=== PATIENT | male | born 1975 | race Caucasian/White ===

== ENCOUNTER 2017-10-17 10:57 | Inpatient (IN) | payer OTHER ==
[2017-10-17] MEDS ORDERED: Ondansetron 4 MG/2 ML SDV IVPUSH ONE (11:24)
[2017-10-17] MEDS ORDERED: Ketorolac 30 MG/ML SDV IVPUSH ONE (11:24)
[2017-10-17] MEDS ORDERED: Sodium Chloride 0.9% 10 ML Syringe FLUSH PRN (11:24)
--- NOTE | 2017-10-17 11:26 | EDM.PDOC ---
ED HPI GENERAL MEDICAL PROBLEM - General Chief Complaint: Abdominal Pain Stated Complaint: RT SIDE ABD PAIN/NAUSEA Time Seen by Provider: 10/17/17 11:21 Source of Information: Reports: Patient, Family, RN Notes Reviewed History Limitations: Reports: No Limitations - History of Present Illness INITIAL COMMENTS - FREE TEXT/NARRATIVE: 41-year-old gentleman presents to the emergency department today complaint of right lower quadrant pain, he states the pain started early this morning it is very intense he is nauseated with this pain no shortness of breath no chest pains no other complaints no other GI symptoms no history of abdominal surgeries - Related Data Allergies Allergy/AdvReac Type Severity Reaction Status Date / Time No Known Allergies Allergy Verified 10/17/17 11:15 Home Meds: Home Meds NK [No Known Home Meds] 10/17/17 [History] Past Medical History - Past Health History Medical/Surgical History: Denies Medical/Surgical History Social & Family History - Tobacco Use Smoking Status *Q: Never Smoker ED ROS GENERAL - Review of Systems Review Of Systems: See Below Constitutional: Reports: No Symptoms Respiratory: Reports: No Symptoms Cardiovascular: Reports: No Symptoms GI/Abdominal: Reports: Abdominal Pain, Flatus, Nausea. Denies: Constipation, Diarrhea, Vomiting : Reports: No Symptoms ED EXAM, GI/ABD - Physical Exam Exam: See Below Exam Limited By: No Limitations General Appearance: Alert, Mild Distress Respiratory/Chest: No Respiratory Distress, Lungs Clear, Normal Breath Sounds, No Accessory Muscle Use Cardiovascular: Regular Rate, Rhythm, No Murmur GI/Abdominal Exam: Normal Bowel Sounds, Soft (None), Tender (Tender right lower quadrant, psoas sign, obturator sign, heeltap sign all positive), Other (Obese) . No: Guarding, Rigid, Rebound Course - Vital Signs Last Recorded V/S: Last Vital Signs Temp 97.2 F 10/17/17 11:18 Pulse 83 10/17/17 11:18 Resp 20 10/17/17 11:18 BP 158/96 H 10/17/17 11:18 Pulse Ox 98 10/17/17 11:18 - Orders/Labs/Meds Orders: Active Orders 24 hr Category Date Time Status Peripheral IV Care [RC] . DIRECTED Care 10/17/17 11:24 Active Abdomen Pelvis w Cont [CT] Urgent Exams 10/17/17 11:24 Taken UA W/MICROSCOPIC [URIN] Urgent Lab 10/17/17 13:16 Ordered Iopamidol [Isovue-300 (61%)] Med 10/17/17 12:00 Active 150 ml IV . DIRECTED Lactated Ringers [Ringers, Lactated] 1,000 ml Med 10/17/17 11:30 Active IV ASDIRECTED Sodium Chloride 0.9% [Saline Flush] Med 10/17/17 11:24 Active 10 ml FLUSH ASDIRECTED PRN cefOXitin [Mefoxin] 2 gm Med 10/17/17 13:24 Ordered Sodium Chloride 0.9% [Normal Saline] 50 ml IV ONETIME Peripheral IV Insertion Adult [OM.PC] Urgent Oth 10/17/17 11:24 Ordered Medication Orders Lactated Ringer's (Ringers, Lactated) 1,000 mls @ 999 mls/hr IV ASDIRECTED DAVID Last Admin: 10/17/17 12:18 Dose: 999 mls/hr Cefoxitin Sodium 2 gm/ Sodium (Chloride) 50 mls @ 100 mls/hr IV ONETIME ONE Stop: 10/17/17 13:53 Iopamidol (Isovue-300 (61%)) 150 ml IV . DIRECTED DAVID Stop: 10/17/17 23:00 Last Admin: 10/17/17 12:19 Dose: 150 ml Sodium Chloride (Saline Flush) 10 ml FLUSH ASDIRECTED PRN PRN Reason: Keep Vein Open Last Admin: 10/17/17 11:43 Dose: 10 ml Labs: Laboratory Tests 10/17/17 10/17/17 10/17/17 Range/Units 11:24 11:24 11:24 WBC 13.6 H (4.5-11.0) K/uL RBC 5.77 (4.30-5.90) M/uL Hgb 14.7 (12.0-15.0) g/dL Hct 44.1 (40.0-54.0) % MCV 76 L (80-98) fL MCH 26 L (27-31) pg MCHC 33 (32-36) % Plt Count 303 (150-400) K/uL Neut % (Auto) 80 H (36-66) % Lymph % (Auto) 13 L (24-44) % [place] % (Auto) 6 (2-6) % Eos % (Auto) 1 L (2-4) % Baso % (Auto) 0 (0-1) % Sodium 140 (140-148) mmol/L Potassium 4.3 (3.6-5.2) mmol/L Chloride 105 (100-108) mmol/L Carbon Dioxide 29 (21-32) mmol/L Anion Gap 6.0 (5.0-14.0) mmol/L BUN 14 (7-18) mg/dL Creatinine 1.4 H (0.8-1.3) mg/dL Est Cr Clr Drug Dosing 79.27 mL/min Estimated GFR (MDRD) 56 L (>60) Glucose 116 H (74-106) mg/dL Lactic Acid 2.3 H (0.4-2.0) mmol/L Calcium 8.6 (8.5-10.1) mg/dL Total Bilirubin 0.6 (0.2-1.0) mg/dL AST 20 (15-37) U/L ALT 40 (12-78) U/L Alkaline Phosphatase 72 (46-116) U/L Troponin I < 0.017 (0.000-0.056) ng/mL Total Protein 6.9 (6.4-8.2) g/dL Albumin 3.4 (3.4-5.0) g/dL Globulin 3.5 (2.3-3.5) g/dL Albumin/Globulin Ratio 1.0 L (1.2-2.2) Lipase 80 (73-393) U/L Urine Color Urine Appearance Urine pH (4.5-8.0) Ur Specific [place] (1.008-1.030) Urine Protein (NEGATIVE) mg/dL Urine Glucose (UA) (NEGATIVE) mg/dL Urine Ketones (NEGATIVE) mg/dL Urine Occult Blood (NEGATIVE) Urine Nitrite (NEGAITVE) Urine Bilirubin (NEGATIVE) Urine Urobilinogen (NORMAL) mg/dL Ur Leukocyte Esterase (NEGATIVE) Urine RBC (0-5) Urine WBC (0-5) Ur Epithelial Cells Amorphous Sediment Urine Bacteria Urine Mucus 10/17/17 Range/Units 13:16 WBC (4.5-11.0) K/uL RBC (4.30-5.90) M/uL Hgb (12.0-15.0) g/dL Hct (40.0-54.0) % MCV (80-98) fL MCH (27-31) pg MCHC (32-36) % Plt Count (150-400) K/uL Neut % (Auto) (36-66) % Lymph % (Auto) (24-44) % [place] % (Auto) (2-6) % Eos % (Auto) (2-4) % Baso % (Auto) (0-1) % Sodium (140-148) mmol/L Potassium (3.6-5.2) mmol/L Chloride (100-108) mmol/L Carbon Dioxide (21-32) mmol/L Anion Gap (5.0-14.0) mmol/L BUN (7-18) mg/dL Creatinine (0.8-1.3) mg/dL Est Cr Clr Drug Dosing mL/min Estimated GFR (MDRD) (>60) Glucose (74-106) mg/dL Lactic Acid (0.4-2.0) mmol/L Calcium (8.5-10.1) mg/dL Total Bilirubin (0.2-1.0) mg/dL AST (15-37) U/L ALT (12-78) U/L Alkaline Phosphatase (46-116) U/L Troponin I (0.000-0.056) ng/mL Total Protein (6.4-8.2) g/dL Albumin (3.4-5.0) g/dL Globulin (2.3-3.5) g/dL Albumin/Globulin Ratio (1.2-2.2) Lipase (73-393) U/L Urine Color Yellow Urine Appearance Clear Urine pH 5.0 (4.5-8.0) Ur Specific [place] 1.000 L (1.008-1.030) Urine Protein Negative (NEGATIVE) mg/dL Urine Glucose (UA) Normal (NEGATIVE) mg/dL Urine Ketones Negative (NEGATIVE) mg/dL Urine Occult Blood Negative (NEGATIVE) Urine Nitrite Negative (NEGAITVE) Urine Bilirubin Negative (NEGATIVE) Urine Urobilinogen Normal (NORMAL) mg/dL Ur Leukocyte Esterase Negative (NEGATIVE) Urine RBC Not seen (0-5) Urine WBC Not seen (0-5) Ur Epithelial Cells Not seen Amorphous Sediment Rare Urine Bacteria Not seen Urine Mucus Rare Meds: Medications Generic Name Dose Route Start Last Admin Trade Name Freq PRN Reason Stop Dose Admin Lactated Ringer's 1,000 mls @ 999 mls/hr 10/17/17 11:30 10/17/17 12:18 Ringers, Lactated IV 999 mls/hr ASDIRECTED DAVID Administration Cefoxitin Sodium 2 gm/ Sodium 50 mls @ 100 mls/hr 10/17/17 13:24 Chloride IV 10/17/17 13:53 ONETIME ONE Iopamidol 150 ml 10/17/17 12:00 10/17/17 12:19 Isovue-300 (61%) IV 10/17/17 23:00 150 ml . DIRECTED DAVID Administration Sodium Chloride 10 ml 10/17/17 11:24 10/17/17 11:43 Saline Flush FLUSH 10 ml ASDIRECTED PRN Administration Keep Vein Open Discontinued Medications Generic Name Dose Route Start Last Admin Trade Name Freq PRN Reason Stop Dose Admin Fentanyl 50 mcg 10/17/17 12:30 10/17/17 12:38 Sublimaze IVPUSH 10/17/17 12:31 50 mcg ONETIME ONE Administration Sodium Chloride 100 mls @ 3.5 mls/sec 10/17/17 11:56 10/17/17 12:19 Normal Saline IV 10/17/17 11:57 3.5 mls/sec ONETIME ONE Administration Ketorolac Tromethamine 30 mg 10/17/17 11:24 10/17/17 11:42 Toradol IVPUSH 10/17/17 11:25 30 mg ONETIME ONE Administration Ondansetron HCl 4 mg 10/17/17 11:24 10/17/17 11:42 Zofran IVPUSH 10/17/17 11:25 4 mg ONETIME ONE Administration Sodium Chloride 10 ml 10/17/17 11:56 10/17/17 12:19 Saline Flush FLUSH 10/17/17 11:57 10 ml ONETIME ONE Administration Departure - Departure Time of Disposition: 13:31 Disposition: Admitted As Inpatient 67 Condition: Good Clinical Impression: Appendicitis Qualifiers: Appendicitis type: acute appendicitis Acute appendicitis type: with localized peritonitis Qualified Code(s): K35.3 - Acute appendicitis with localized peritonitis - Discharge Information Referrals: PCP,None [Primary Care Provider] - Forms: ED Department Discharge - My Orders Last 24 Hours: My Active Orders 10/17/17 11:24 Peripheral IV Care [RC] . DIRECTED Abdomen Pelvis w Cont [CT] Urgent Sodium Chloride 0.9% [Saline Flush] 10 ml FLUSH ASDIRECTED PRN Peripheral IV Insertion Adult [OM.PC] Urgent 10/17/17 11:30 Lactated Ringers [Ringers, Lactated] 1,000 ml IV ASDIRECTED 10/17/17 12:00 Iopamidol [Isovue-300 (61%)] 150 ml IV . DIRECTED 10/17/17 13:16 UA W/MICROSCOPIC [URIN] Urgent 10/17/17 13:24 cefOXitin [Mefoxin] 2 gm Sodium Chloride 0.9% [Normal Saline] 50 ml IV ONETIME - Assessment/Plan Last 24 Hours: My Active Orders 10/17/17 11:24 Peripheral IV Care [RC] . DIRECTED Abdomen Pelvis w Cont [CT] Urgent Sodium Chloride 0.9% [Saline Flush] 10 ml FLUSH ASDIRECTED PRN Peripheral IV Insertion Adult [OM.PC] Urgent 10/17/17 11:30 Lactated Ringers [Ringers, Lactated] 1,000 ml IV ASDIRECTED 10/17/17 12:00 Iopamidol [Isovue-300 (61%)] 150 ml IV . DIRECTED 10/17/17 13:16 UA W/MICROSCOPIC [URIN] Urgent 10/17/17 13:24 cefOXitin [Mefoxin] 2 gm Sodium Chloride 0.9% [Normal Saline] 50 ml IV ONETIME Plan: Assessment Acuity = acute Site and laterality = acute appendicitis Etiology = unknown Manifestations = abdominal pain, nausea Location of injury = Home Lab values = WBC elevated at 13.6 consistent leukocytosis, creatinine elevated at 1.4 consistent acute renal failure stage GIII a lactic acid elevated 2.3 consistent with lactic acidosis, CT scan describes the appendicitis above, troponin was negative Plan Called discussed case Dr. Alvarez he kindly agreed to come and evaluate the patient emergency department, patient was given 2 g Mefoxin in the ED as well as 1 L of lactated Ringer's, 4 mg Zofran and 1 mg Dilaudid with 30 mg Toradol This note was dictated using [employer] voice recognition software please call with any questions on syntax or grammar.
[2017-10-17] MEDS ORDERED: Lactated Ringers 1,000 ML IV SCH (11:30)
[2017-10-17] MEDS ORDERED: Sodium Chloride 0.9% 10 ML Syringe FLUSH ONE (11:56)
[2017-10-17] MEDS ORDERED: Sodium Chloride 0.9% 100 ML IV ONE (11:56)
[2017-10-17] MEDS ORDERED: Iopamidol 612 MG/ML 150 ML Bottle IV SCH (12:00)
[2017-10-17] MEDS ORDERED: fentaNYL 100 MCG/2 ML SDV IVPUSH ONE ×2 (12:30→14:14)
[2017-10-17] MEDS ORDERED: cefOXitin 2 GM in Sodium Chloride 0.9% 50 ML IV ONE ×2 (13:24→14:15)
[2017-10-17] MEDS ORDERED: Ondansetron 4 MG/2 ML SDV ONE (14:08)
[2017-10-17] MEDS ORDERED: fentaNYL 250 MCG/5 ML SDV ONE ×2 (14:08→14:39)
[2017-10-17] MEDS ORDERED: Propofol 200 MG/20 ML SDV ONE (14:08)
[2017-10-17] MEDS ORDERED: Neostigmine Methylsulfate 1 MG/ML 5 ML Syringe ONE (14:08)
[2017-10-17] MEDS ORDERED: Dexamethasone 4 MG/ML SDV ONE (14:08)
[2017-10-17] MEDS ORDERED: Rocuronium 50 MG/5 ML Vial ONE (14:08)
[2017-10-17] MEDS ORDERED: Succinylcholine 200 MG/10 ML MDV ONE (14:08)
[2017-10-17] MEDS ORDERED: Glycopyrrolate 0.2 MG/ML 5 ML MDV ONE (14:08)
[2017-10-17] MEDS ORDERED: Bupivacaine 0.5% 50 ML MDV ONE (14:38)
[2017-10-17] MEDS ORDERED: Lidocaine 1% with EPINEPHrine 1:100,000 50 ML MDV ONE (14:38)
[2017-10-17] MEDS ORDERED: Lactated Ringers 1,000 ML ONE (14:42)
[2017-10-17] MEDS ORDERED: Lidocaine 2% 100 MG/5 ML Syringe ONE (15:17)
[2017-10-17] MEDS ORDERED: Ondansetron 4 MG/2 ML SDV IVPUSH PRN (15:58)
[2017-10-17] MEDS ORDERED: hydrOXYzine HCl 100 MG/2 ML SDV IM PRN (15:58)
[2017-10-17] MEDS ORDERED: fentaNYL 100 MCG/2 ML SDV IVPUSH PRN (15:58)
[2017-10-17] MEDS: Acetaminophen/HYDROcodone 325-5 MG Tab PO PRN (20:52)
[2017-10-17] MEDS: Lactated Ringers 1,000 ML IV SCH (20:52)
[2017-10-18] MEDS: Acetaminophen/HYDROcodone 325-5 MG Tab PO PRN ×2 (01:16→08:11)
[2017-10-18] MEDS: Lactated Ringers 1,000 ML IV SCH (04:07)
--- NOTE | 2017-10-18 09:23 | PCM.DCSUM1 ---
Discharge Summary - Hospital Course Free Text/Narrative:: This 41 year old white male from [place], [place] presented to the ER yesterday after several hours of right lower quadrant abdominal pain followed by onset of nausea without vomiting. He was afebrile. He was tender in the right lower quadrant with peritoneal irritation signs. He had an elevated WBC of 13,600. CT of abdomen and pelvis was consistent with acute appendicitis. He received Mefoxin 2 grams IV and taken to the OR for a laparoscopic appendectomy. Non- perforated acute appendicitis was found. He is doing well post operatively. He is eating well, is afebrile, his WBC is now normal and he is discharged at this time in good condition. Brief History: See above narrative. Diagnosis: Stroke: No - Discharge Data Discharge Date: 10/18/17 Discharge Disposition: Home, Self-Care 01 Condition: Good - Discharge Diagnosis/Problem(s) (1) Appendicitis SNOMED Code(s): 53972679 ICD Code: K37 - UNSPECIFIED APPENDICITIS Status: Acute Current Visit: Yes Qualifiers: Appendicitis type: acute appendicitis Acute appendicitis type: with localized peritonitis Qualified Code(s): K35.3 - Acute appendicitis with localized peritonitis - Patient Summary/Data Operative Procedure(s) Performed: Laparoscopic appendectomy. Consults: Consultations 10/17/17 15:59 Respiratory Care Assess and Treatment [CONS] Routine Comment: Physician Instructions: Post-Op Pneumonia Prevention Hospital Course: See above narrative. - Patient Instructions Diet: Usual Diet as Tolerated Activity: As Tolerated (Avoid activity that causes discomfort. ) Driving: Do Not Drive (Do not drive while taking narcotic pain medication. ) Showering/Bathing: May Shower Notify Provider of: Fever, Increased Pain, Swelling and Redness, Drainage, Nausea and/or Vomiting - Discharge Plan Prescriptions/Med Rec: Acetaminophen/HYDROcodone [[place] 325-5 MG] 1 - 2 tab PO Q4H PRN #30 tablet PRN Reason: Pain (Moderate 4-6) Home Medications: Home Meds Acetaminophen/HYDROcodone [[place] 325-5 MG] 1 - 2 tab PO Q4H PRN #30 tablet 10/18 [Rx] Patient Handouts: Appendicitis, Laparoscopic Appendectomy, Adult, Care After, Laparoscopic Appendectomy, Adult, Care After, [id number], Laparoscopic Appendectomy, Adult, Appendicitis, [id number] Forms: ED Department Discharge Referrals: PCP,None [Primary Care Provider] - (See his primary care provider in about two weeks in his home area of [place], [place]. ) - Discharge Summary/Plan Comment DC Time >30 min.: Yes Discharge Summary/Plan Comment: See above narrative. - Patient Data Vitals - Most Recent: Last Vital Signs Temp 96.8 F 10/18/17 07:32 Pulse 73 10/18/17 07:32 Resp 16 10/18/17 07:32 BP 116/73 10/18/17 07:32 Pulse Ox 94 L 10/18/17 07:32 Weight - Most Recent: 280 lb I&O - Last 24 hours: Intake & Output 10/17/17 10/18/17 10/18/17 22:59 06:59 14:59 Intake Total 840 1670 480 Output Total 250 Balance 590 1670 480 Lab Results - Last 24 hrs: Laboratory Results - last 24 hr 10/17/17 10/17/17 10/17/17 Range/Units 11:24 11:24 11:24 WBC 13.6 H (4.5-11.0) K/uL RBC 5.77 (4.30-5.90) M/uL Hgb 14.7 (12.0-15.0) g/dL Hct 44.1 (40.0-54.0) % MCV 76 L (80-98) fL MCH 26 L (27-31) pg MCHC 33 (32-36) % Plt Count 303 (150-400) K/uL Neut % (Auto) 80 H (36-66) % Lymph % (Auto) 13 L (24-44) % [place] % (Auto) 6 (2-6) % Eos % (Auto) 1 L (2-4) % Baso % (Auto) 0 (0-1) % Sodium 140 (140-148) mmol/L Potassium 4.3 (3.6-5.2) mmol/L Chloride 105 (100-108) mmol/L Carbon Dioxide 29 (21-32) mmol/L Anion Gap 6.0 (5.0-14.0) mmol/L BUN 14 (7-18) mg/dL Creatinine 1.4 H (0.8-1.3) mg/dL Est Cr Clr Drug Dosing 79.27 mL/min Estimated GFR (MDRD) 56 L (>60) Glucose 116 H (74-106) mg/dL Lactic Acid 2.3 H (0.4-2.0) mmol/L Calcium 8.6 (8.5-10.1) mg/dL Total Bilirubin 0.6 (0.2-1.0) mg/dL AST 20 (15-37) U/L ALT 40 (12-78) U/L Alkaline Phosphatase 72 (46-116) U/L Troponin I < 0.017 (0.000-0.056) ng/mL Total Protein 6.9 (6.4-8.2) g/dL Albumin 3.4 (3.4-5.0) g/dL Globulin 3.5 (2.3-3.5) g/dL Albumin/Globulin Ratio 1.0 L (1.2-2.2) Lipase 80 (73-393) U/L Urine Color Urine Appearance Urine pH (4.5-8.0) Ur Specific [place] (1.008-1.030) Urine Protein (NEGATIVE) mg/dL Urine Glucose (UA) (NEGATIVE) mg/dL Urine Ketones (NEGATIVE) mg/dL Urine Occult Blood (NEGATIVE) Urine Nitrite (NEGAITVE) Urine Bilirubin (NEGATIVE) Urine Urobilinogen (NORMAL) mg/dL Ur Leukocyte Esterase (NEGATIVE) Urine RBC (0-5) Urine WBC (0-5) Ur Epithelial Cells Amorphous Sediment Urine Bacteria Urine Mucus 10/17/17 10/18/17 10/18/17 Range/Units 13:16 05:06 05:06 WBC 9.7 (4.5-11.0) K/uL RBC 5.22 (4.30-5.90) M/uL Hgb 12.6 D (12.0-15.0) g/dL Hct 40.1 (40.0-54.0) % MCV 77 L (80-98) fL MCH 24 L (27-31) pg MCHC 31 L (32-36) % Plt Count 281 (150-400) K/uL Neut % (Auto) (36-66) % Lymph % (Auto) (24-44) % [place] % (Auto) (2-6) % Eos % (Auto) (2-4) % Baso % (Auto) (0-1) % Sodium 137 L (140-148) mmol/L Potassium 4.3 (3.6-5.2) mmol/L Chloride 102 (100-108) mmol/L Carbon Dioxide 25 (21-32) mmol/L Anion Gap 14.3 H (5.0-14.0) mmol/L BUN 13 (7-18) mg/dL Creatinine 1.2 (0.8-1.3) mg/dL Est Cr Clr Drug Dosing 92.48 mL/min Estimated GFR (MDRD) > 60 (>60) Glucose 132 H (74-106) mg/dL Lactic Acid (0.4-2.0) mmol/L Calcium 8.5 (8.5-10.1) mg/dL Total Bilirubin (0.2-1.0) mg/dL AST (15-37) U/L ALT (12-78) U/L Alkaline Phosphatase (46-116) U/L Troponin I (0.000-0.056) ng/mL Total Protein (6.4-8.2) g/dL Albumin (3.4-5.0) g/dL Globulin (2.3-3.5) g/dL Albumin/Globulin Ratio (1.2-2.2) Lipase (73-393) U/L Urine Color Yellow Urine Appearance Clear Urine pH 5.0 (4.5-8.0) Ur Specific [place] 1.000 L (1.008-1.030) Urine Protein Negative (NEGATIVE) mg/dL Urine Glucose (UA) Normal (NEGATIVE) mg/dL Urine Ketones Negative (NEGATIVE) mg/dL Urine Occult Blood Negative (NEGATIVE) Urine Nitrite Negative (NEGAITVE) Urine Bilirubin Negative (NEGATIVE) Urine Urobilinogen Normal (NORMAL) mg/dL Ur Leukocyte Esterase Negative (NEGATIVE) Urine RBC Not seen (0-5) Urine WBC Not seen (0-5) Ur Epithelial Cells Not seen Amorphous Sediment Rare Urine Bacteria Not seen Urine Mucus Rare Med Orders - Current: Current Medications Hydrocodone Bitart/Acetaminophen ([place] 325-5 Mg) 2 tab PO Q4H PRN PRN Reason: Pain (moderate 4-6) Last Admin: 10/18/17 08:11 Dose: 2 tab Fentanyl (Sublimaze) 25 mcg IVPUSH Q1H PRN PRN Reason: Pain (moderate 4-6) Last Admin: 10/17/17 19:23 Dose: 25 mcg Hydroxyzine HCl (Vistaril) 50 mg IM Q4H PRN PRN Reason: Nausea Lactated Ringer's (Ringers, Lactated) 1,000 mls @ 125 mls/hr IV ASDIRECTED [facility] Last Admin: 10/18/17 04:07 Dose: 125 mls/hr Ondansetron HCl (Zofran) 4 mg IVPUSH Q6H PRN PRN Reason: Nausea/Vomiting Sodium Chloride (Saline Flush) 10 ml FLUSH ASDIRECTED PRN PRN Reason: Keep Vein Open Last Admin: 10/17/17 11:43 Dose: 10 ml Discontinued Medications Bupivacaine HCl (Marcaine 0.5%) Confirm Administered Dose 50 ml .ROUTE .STK-MED ONE Stop: 10/17/17 14:39 Last Admin: 10/17/17 14:54 Dose: 20 ml Dexamethasone (Dexamethasone) Confirm Administered Dose 4 mg .ROUTE .STK-MED ONE Stop: 10/17/17 14:09 Fentanyl (Sublimaze) 50 mcg IVPUSH ONETIME ONE Stop: 10/17/17 12:31 Last Admin: 10/17/17 12:38 Dose: 50 mcg Fentanyl (Sublimaze) Confirm Administered Dose 250 mcg .ROUTE .STK-MED ONE Stop: 10/17/17 14:09 Fentanyl (Sublimaze) 50 mcg IVPUSH ONETIME ONE Stop: 10/17/17 14:15 Last Admin: 10/17/17 16:00 Dose: 50 mcg Fentanyl (Sublimaze) Confirm Administered Dose 250 mcg .ROUTE .STK-MED ONE Stop: 10/17/17 14:40 Glycopyrrolate (Robinul) Confirm Administered Dose 1 mg .ROUTE .STK-MED ONE Stop: 10/17/17 14:09 Lactated Ringer's (Ringers, Lactated) 1,000 mls @ 999 mls/hr IV ASDIRECTED [facility] Last Admin: 10/17/17 12:18 Dose: 999 mls/hr Sodium Chloride (Normal Saline) 100 mls @ 3.5 mls/sec IV ONETIME ONE Stop: 10/17/17 11:57 Last Admin: 10/17/17 12:19 Dose: 3.5 mls/sec Cefoxitin Sodium 2 gm/ Sodium (Chloride) 50 mls @ 100 mls/hr IV ONETIME ONE Stop: 10/17/17 14:44 Last Admin: 10/17/17 14:10 Dose: 100 mls/hr Lactated Ringer's (Ringers, Lactated) Confirm Administered Dose 1,000 mls @ as directed .ROUTE .STK-MED ONE Stop: 10/17/17 14:43 Iopamidol (Isovue-300 (61%)) 150 ml IV . DIRECTED DAVID Stop: 10/17/17 23:00 Last Admin: 10/17/17 12:19 Dose: 150 ml Ketorolac Tromethamine (Toradol) 30 mg IVPUSH ONETIME ONE Stop: 10/17/17 11:25 Last Admin: 10/17/17 11:42 Dose: 30 mg Lidocaine HCl (Xylocaine 2%) Confirm Administered Dose 100 mg .ROUTE .STK-MED ONE Stop: 10/17/17 15:18 Lidocaine/Epinephrine (Xylocaine 1% With Epinephrine 1:100,000) Confirm Administered Dose 50 ml .ROUTE .STK-MED ONE Stop: 10/17/17 14:39 Last Admin: 10/17/17 14:55 Dose: 20 ml Neostigmine Methylsulfate (Neostigmine) Confirm Administered Dose 5 mg .ROUTE .STK-MED ONE Stop: 10/17/17 14:09 Ondansetron HCl (Zofran) 4 mg IVPUSH ONETIME ONE Stop: 10/17/17 11:25 Last Admin: 10/17/17 11:42 Dose: 4 mg Ondansetron HCl (Zofran) Confirm Administered Dose 4 mg .ROUTE .STK-MED ONE Stop: 10/17/17 14:09 Propofol (Diprivan 20 Ml) Confirm Administered Dose 200 mg .ROUTE .STK-MED ONE Stop: 10/17/17 14:09 Rocuronium [place] (Zemuron) Confirm Administered Dose 50 mg .ROUTE .STK-MED ONE Stop: 10/17/17 14:09 Sodium Chloride (Saline Flush) 10 ml FLUSH ONETIME ONE Stop: 10/17/17 11:57 Last Admin: 10/17/17 12:19 Dose: 10 ml Succinylcholine Chloride (Quelicin) Confirm Administered Dose 200 mg .ROUTE .STK -MED ONE Stop: 10/17/17 14:09
--- NOTE | 2017-10-19 08:20 | OR ---
DATE OF PROCEDURE: 10/17/2017 PREOPERATIVE DIAGNOSIS: Acute appendicitis. POSTOPERATIVE DIAGNOSIS: Acute nonperforated appendicitis. PROCEDURE: Laparoscopic appendectomy. SURGEON: Cristi Alvarez MD. ANESTHESIA: General endotracheal. INDICATION: This 41-year-old white male from the [facility], noted early this morning onset of abdominal pain, primarily in his right lower quadrant. This was followed by nausea. He felt like he could vomit, but did not. He presented to the emergency room. He was found to be afebrile, tender in the right lower quadrant with localized peritoneal irritation signs. White count was 13,600. He underwent a CAT scan of his abdomen and pelvis, which was consistent with acute appendicitis. He was taken to the operating room for a laparoscopic appendectomy and received Mefoxin 2 g IV in the immediate preoperative period. I counseled him for surgery, including risks and alternatives, and he gave his informed consent to proceed. DESCRIPTION OF PROCEDURE: After adequate general endotracheal anesthesia was obtained, a Yeung catheter was placed. The leg compression stockings were in place and used during the entire procedure. His abdomen was prepped and draped in the usual sterile fashion. Time- out was held. An infraumbilical semicircular incision was made. Under direct vision, a 12- mm port was introduced in the abdomen through this incision. The camera was introduced into the abdomen and the abdomen was insufflated to a pressure of 20 mmHg with carbon dioxide. No evidence of intraabdominal injury was seen. Under direct vision, 12 mm ports were placed in the right upper and left lower quadrants. We were able to mobilize up the appendix which was noted to be markedly distended with an exudate and some carreno areas on it consistent with acute nonperforated appendicitis. The base of appendix was divided with the endoscopic ADARSH using a blue load. The mesoappendix was divided with the endoscopic ADARSH using a white load. The appendix was placed in a sample retrieval bag and elevated up through the anterior abdominal wall via the right upper quadrant port site. To accomplish this we had to enlarge the incision. The appendix was delivered from the field. The right upper quadrant port was reintroduced back into the abdomen. Hemostasis was obtained with electrocautery. All looked well. The fascial closure device was used to place 0 Vicryl stitches in the right upper and left lower quadrant fascial defects. After they were both placed, they were tied down. The infraumbilical port was removed with an interrupted stitch of 0 Vicryl used to close this fascial defect. Before tying the stitch down, we evacuated as much CO2 as we could from the abdomen. Lidocaine 1% in a 50:50 mix with 0.5% Marcaine with epinephrine was infiltrated about all incisions. 4-0 Vicryl using a subcuticular stitch was placed to approximate the skin incisions. Dermabond was applied. The anesthesia was reversed. He was extubated and brought to recovery room in good condition. His Yeung catheter was removed before he got to the recovery room. Cristi Alvarez MD /[id number] TAE
== END 2017-10-18 10:05 | disposition home or self-care (01) | DRG 342 ==
LOC: JP.ED 10:57 → JP.SDS 14:11 → JP.MS 15:59
PROVIDERS: ADMIT Surgery; ATTEND Surgery
PROC: 0DTJ4ZZ Resection of Appendix, Percutaneous Endoscopic Approach (ICD-10-PCS; principal; 2017-10-17)
DX: K35.80 Unspecified acute appendicitis (principal); N17.9 Acute kidney failure, unspecified; E87.2 Acidosis
CPT/HCPCS: 36415; 74177; 80048; 80053; 81001; 83605; 83690; 84484; 85025; 85027; 96361; 96365; 96375; 96376; 99285-25; A9270-GY; J0330; J0694; J1100; J1885; J2405; J2704; J2710; J3010; J7030; J7050; J7120